=== PATIENT | male | born 1975 | race Caucasian/White ===

== ENCOUNTER 2021-03-26 14:03 | Emergency (ER) | payer MEDICAID ==
[~2021-03-26] VITALS: Ht 175.3 cm; Wt 90.7 kg
[2021-03-26] MEDS ORDERED: methylPREDNISolone SOD SUCC 125 MG/2ML VIAL ONE (14:23)
[2021-03-26] MEDS ORDERED: ALBUTEROL FS 2.5 MG/3 ML VIAL.NEB ONE (14:27)
[2021-03-26] MEDS ORDERED: IPRATROPIUM NEB FS 0.5 MG/2.5 ML AMPUL.NEB ONE (14:27)
[2021-03-26] MEDS ORDERED: IPRATROPIUM NEB FS 0.5 MG/2.5 ML AMPUL.NEB NEB ONE (14:30)
[2021-03-26] MEDS ORDERED: IV NS 0.9% 1,000 ML IV ONE (14:30)
[2021-03-26] MEDS ORDERED: methylPREDNISolone SOD SUCC 125 MG/2ML VIAL IV ONE (14:30)
[2021-03-26] MEDS ORDERED: ALBUTEROL FS 2.5 MG/3 ML VIAL.NEB CONTNEB ONE (14:30)
--- NOTE | 2021-03-26 14:30 | NUR ---
BIB C/O SOB, ABDOMINAL AND LOWER BACK PAIN. RATES PAIN 8/10. ATTACHED TO THE MONITOR. WARM BLANKET PROVIDED FOR COMFORT. WILL CONTINUE TO MONITOR THE PATIENT.
[2021-03-26 14:40] LABS: BASOPHILS # (AUTO) 0.1 /CMM (0.0-0.2); BASOPHILS % (AUTO) 0.5 % (0.0-2.0); EOSINOPHILS % (AUTO) 0.2 % (0.0-6.0); HEMATOCRIT 53 % (39-51); HEMOGLOBIN 17.6 g/dL (13.5-17.5); LYMPHOCYTES # (AUTO) 0.9 /CMM (0.8-4.8); LYMPHOCYTES % (AUTO) 5.6 % (20.0-44.0); MEAN CORPUSCULAR HGB CONC 33 g/dl (31.0-36.0); MEAN CORPUSCULAR VOLUME 95 fL (80-96); MONOCYTES # (AUTO) 1.4 /CMM (0.1-1.30); MONOCYTES % (AUTO) 9.1 % (2.0-12.0); NEUTROPHILS # (AUTO) 13.5 /CMM (1.8-8.9); NEUTROPHILS % (AUTO) 84.6 % (43.0-81.0); PLATELET COUNT (AUTO) 277 /CMM (150-450); RED BLOOD CELL COUNT(AUTO) 5.58 MIL/uL (4.5-6.0); WHITE BLOOD COUNT (AUTO) 15.9 K/uL (4.3-11.0)
--- NOTE | 2021-03-26 14:54 | NUR ---
COVID SWAB DONE AND SENT TO THE LAB
[2021-03-26 14:55] LABS: CALCIUM, SERUM 10.5 mg/dL (8.5-10.1); CREATININE 1.7 mg/dL (0.6-1.3); POTASSIUM 4.6 mmol/L (3.5-5.1)
[2021-03-26 15:01] LABS: BILIRUBIN,DIRECT 0.2 mg/dL (0.0-0.2); BILIRUBIN,TOTAL 0.5 mg/dL (0.2-1.0); TOTAL PROTEIN, SERUM 8.2 g/dL (6.4-8.2)
[2021-03-26 15:23] LABS: ALBUMIN 3.3 g/dL (3.4-5.0)
[2021-03-26] MEDS ORDERED: HYDROCODONE/APAP 5/325MG TABLET ONE (15:59)
[2021-03-26] MEDS ORDERED: HYDROCODONE/APAP 5/325MG TABLET PO ONE (16:00)
--- NOTE | 2021-03-26 16:01 | NUR ---
PATIENT WITH ALLERGY WITH MORPHINE. PATIENT STATED "I'M OKAY WITH NORCO".
[2021-03-26] MEDS ORDERED: BENA40TA67 PO (16:18)
[2021-03-26] MEDS ORDERED: AZIT250T PO (16:18)
[2021-03-26] MEDS ORDERED: PRED50TA PO (16:18)
[2021-03-26] MEDS ORDERED: ALBU8.5H8 INH (16:18)
[2021-03-26] MEDS ORDERED: HYDR-3980 PO (16:31)
--- NOTE | 2021-03-26 16:40 | NUR ---
The patient is alert and oriented x4. Patient discharged to home in stable condition. Written and verbal after care instructions given. Patient verbalizes understanding of instruction.
[2021-03-26 16:41] VITALS: BP 151/98
== END 2021-03-26 16:42 | disposition home or self-care (01) ==
LOC: ER 14:03
DX: R10.9 Unspecified abdominal pain (principal); K86.89 Other specified diseases of pancreas; R05 Cough; J45.901 Unspecified asthma with (acute) exacerbation; Z20.822 Contact with and (suspected) exposure to COVID-19; I10 Essential (primary) hypertension; R00.0 Tachycardia, unspecified; Z88.5 Allergy status to narcotic agent; Z85.47 Personal history of malignant neoplasm of testis; R31.9 Hematuria, unspecified
CPT/HCPCS: 36415; 71045; 74176; 80048; 80076; 85025; 87426; 93005; 94644; 96361; 96374; 99285; C9803; J2930; J7030